=== PATIENT | male | born 1965 | race Caucasian/White ===

== ENCOUNTER 2024-03-09 12:04 | Inpatient (IN) | payer OTHER ==
[~2024-03-09] VITALS: Ht 167.6 cm; Wt 86.2 kg
[2024-03-09] MEDS ORDERED: THIA100T68 PO (12:19)
[2024-03-09] MEDS ORDERED: POTA-88 PO (12:19)
[2024-03-09] MEDS ORDERED: ZONI100C31 PO (12:19)
[2024-03-09] MEDS ORDERED: OMEG100019 PO (12:19)
[2024-03-09] MEDS ORDERED: MAGN400T52 PO (12:19)
[2024-03-09] MEDS ORDERED: POLY17PO4 PO (12:19)
[2024-03-09] MEDS ORDERED: CYAN100T44 PO (12:19)
[2024-03-09] MEDS ORDERED: LEVE500T20 PO (12:19)
[2024-03-09] MEDS ORDERED: SENN1TAB59 PO (12:19)
[2024-03-09] MEDS ORDERED: CHOL10005 PO (12:19)
[2024-03-09] MEDS ORDERED: PYRI-6 PO (12:19)
[2024-03-09] MEDS ORDERED: MULT-594 PO (12:19)
[2024-03-09 12:34] LABS: EOSINOPHILS # (AUTO) 0.2 K/uL (0.0-0.7)
[2024-03-09 12:45] LABS: CALCIUM 9.5 mg/dL (8.5-10.1); CARBON DIOXIDE 25 mmol/L (21-32); CHLORIDE 112 mmol/L (98-107); CREATININE 0.9 mg/dL (0.6-1.3); GLUCOSE 97 mg/dL (74-106); POTASSIUM 3.2 mmol/L (3.5-5.1); SODIUM SERUM 146 mmol/L (136-145); UREA NITROGEN, BLOOD 20 mg/dL (7-18)
[2024-03-09 12:53] LABS: ALANINE AMINOTRANSFERASE 24 U/L (16-63); ALBUMIN 3.3 g/dL (3.4-5.0); ALKALINE PHOSPHATASE 94 U/L (50-136); ASPARTATE AMINOTRANSFERASE 10 U/L (15-37); BILIRUBIN,DIRECT 0.1 mg/dL (0.0-0.2); BILIRUBIN,TOTAL 0.5 mg/dL (0.2-1.0); LIPASE 97 U/L (16-77); TOTAL PROTEIN, SERUM 8.2 g/dL (6.4-8.2)
[2024-03-09 13:38] LABS: BASOPHILS % (AUTO) 0.6 % (0.0-2.0); EOSINOPHILS % (AUTO) 2.2 % (0.0-7.0); HEMATOCRIT 40.9 % (36.7-47.1); HEMOGLOBIN 13.1 g/dL (12.5-16.3); LYMPHOCYTES # (AUTO) 1.4 K/uL (0.8-4.8); LYMPHOCYTES % (AUTO) 20.6 % (20.5-51.5); MEAN CORPUSCULAR HEMOGLOBIN 30.3 uug (23.8-33.4); MEAN CORPUSCULAR HGB CONC 32 g/dL (32.5-36.3); MEAN CORPUSCULAR VOLUME 94.5 fL (73.0-96.2); MONOCYTES # (AUTO) 0.7 K/uL (0.1-1.30); MONOCYTES % (AUTO) 10.4 % (0.0-11.0); NEUTROPHILS # (AUTO) 4.6 K/uL (1.8-8.9); NEUTROPHILS % (AUTO) 66.2 % (38.5-71.5); PLATELET COUNT (AUTO) 240 K/uL (152-348); RED BLOOD CELL COUNT(AUTO) 4.33 MIL/uL (4.06-5.63); RED CELL DISTRIBUTION WIDTH 14.1 % (12.1-16.2)
[2024-03-09 13:40] LABS: DIFFERENTIAL COMMENT 1
[2024-03-09 13:58] LABS: *BILIRUBIN,URIN NEGATIVE (NEGATIVE); *BLOOD, URINE NEGATIVE (NEGATIVE); *CLARITY,URINE CLEAR (CLEAR); *COLOR,URINE YELLOW (YELLOW); *KETONES,URINE NEGATIVE (NEGATIVE); *PROTEIN,URINE NEGATIVE (NEGATIVE); *UROBILINOGEN,URINE 0.2 E.U./dl (NORMAL); LEUKOCYTE ESTERASE ,URINE NEGATIVE (NEGATIVE); NITRITE, URINE NEGATIVE (NEGATIVE); PH,URINE 6.5 (5.0-8.0); UGLUCOSE NEGATIVE (NEGATIVE)
[2024-03-09 14:08] LABS: *OCCULT BLOOD STOOL NEGATIVE (NEGATIVE)
[2024-03-09] MEDS ORDERED: ONDANSETRON 4 MG/2 ML VIAL IV PRN (16:00)
[2024-03-09] MEDS ORDERED: ACETAMINOPHEN 650 MG SUPP.RECT RC PRN (16:00)
[2024-03-09] MEDS ORDERED: ACETAMINOPHEN 325 MG TABLET PO PRN (16:00)
[2024-03-09] MEDS ORDERED: LORAZEPAM 2 MG/1 ML VIAL IV PRN (16:15)
[2024-03-09] MEDS: IV D5W 1000ML 1,000 ML IV PRN (19:51)
[2024-03-09 19:55] VITALS: BP 153/86; TEMP 98.9; O2SAT 97
[2024-03-09] MEDS: POTASSIUM CHLORIDE 50 ML IV SCH (20:01)
[2024-03-09] MEDS: ZONISAMIDE 100 MG CAPSULE PO SCH (20:25)
[2024-03-09] MEDS: levETIRAcetam 500 MG TABLET PO SCH (20:25)
[2024-03-09] MEDS: ENOXAPARIN SODIUM 40 MG/0.4 ML DISP.SYRIN SQ SCH (20:26)
[2024-03-09] MEDS ORDERED: levETIRAcetam 500 MG TABLET PO SCH (21:00)
[2024-03-10 04:06] VITALS: BP 110/78; TEMP 98.8; O2SAT 97
[2024-03-10 06:41] LABS: BASOPHILS % (AUTO) 0.5 % (0.0-2.0); EOSINOPHILS # (AUTO) 0.2 K/uL (0.0-0.7); EOSINOPHILS % (AUTO) 3.5 % (0.0-7.0); LYMPHOCYTES # (AUTO) 1.3 K/uL (0.8-4.8); LYMPHOCYTES % (AUTO) 19.9 % (20.5-51.5); MEAN CORPUSCULAR HEMOGLOBIN 30.6 uug (23.8-33.4); MEAN CORPUSCULAR HGB CONC 33 g/dL (32.5-36.3); MEAN CORPUSCULAR VOLUME 94.1 fL (73.0-96.2); MONOCYTES # (AUTO) 0.6 K/uL (0.1-1.30); MONOCYTES % (AUTO) 8.7 % (0.0-11.0); NEUTROPHILS # (AUTO) 4.5 K/uL (1.8-8.9); NEUTROPHILS % (AUTO) 67.4 % (38.5-71.5); PLATELET COUNT (AUTO) 223 K/uL (152-348); RED BLOOD CELL COUNT(AUTO) 4.25 MIL/uL (4.06-5.63); RED CELL DISTRIBUTION WIDTH 13.8 % (12.1-16.2); WHITE BLOOD COUNT (AUTO) 6.7 K/uL (3.6-10.2)
[2024-03-10 06:51] LABS: DIFFERENTIAL COMMENT 1
[2024-03-10 07:27] LABS: ALANINE AMINOTRANSFERASE 18 U/L (16-63); ALBUMIN 2.9 g/dL (3.4-5.0); ALKALINE PHOSPHATASE 84 U/L (50-136); ASPARTATE AMINOTRANSFERASE < 5 U/L (15-37); BILIRUBIN,TOTAL 0.5 mg/dL (0.2-1.0); CALCIUM 8.6 mg/dL (8.5-10.1); CARBON DIOXIDE 25 mmol/L (21-32); CHLORIDE 112 mmol/L (98-107); CREATININE 0.8 mg/dL (0.6-1.3); GLUCOSE 92 mg/dL (74-106); MAGNESIUM 2.1 mg/dL (1.8-2.4); PHOSPHOROUS 2.7 mg/dL (2.5-4.9); SODIUM SERUM 147 mmol/L (136-145); TOTAL PROTEIN, SERUM 7.2 g/dL (6.4-8.2); UREA NITROGEN, BLOOD 15 mg/dL (7-18)
[2024-03-10] MEDS: PANTOPRAZOLE SODIUM 40 MG VIAL IV SCH (09:09)
[2024-03-10 12:31] VITALS: BP 136/71; TEMP 98.8; O2SAT 90
[2024-03-10] MEDS: POTASSIUM CHLORIDE 20 MEQ TAB.PRT.SR PO SCH (13:55)
[2024-03-10 16:47] VITALS: BP 109/76; TEMP 98.1; O2SAT 93
[2024-03-10] MEDS ORDERED: ALBUTEROL SULFATE 2.5 MG/ 0.5 ML NEBU NEB PRN (18:15)
[2024-03-10 20:38] VITALS: BP 141/72; TEMP 98.4; O2SAT 95
[2024-03-11 04:50] VITALS: BP 116/64; TEMP 97.8; O2SAT 96
[2024-03-11 07:27] LABS: BASOPHILS % (AUTO) 0.5 % (0.0-2.0); EOSINOPHILS # (AUTO) 0.2 K/uL (0.0-0.7); EOSINOPHILS % (AUTO) 3.2 % (0.0-7.0); HEMATOCRIT 40.2 % (36.7-47.1); HEMOGLOBIN 13.3 g/dL (12.5-16.3); LYMPHOCYTES # (AUTO) 1.1 K/uL (0.8-4.8); LYMPHOCYTES % (AUTO) 16.9 % (20.5-51.5); MEAN CORPUSCULAR HEMOGLOBIN 30.8 uug (23.8-33.4); MEAN CORPUSCULAR HGB CONC 33 g/dL (32.5-36.3); MEAN CORPUSCULAR VOLUME 93.2 fL (73.0-96.2); MONOCYTES # (AUTO) 0.6 K/uL (0.1-1.30); MONOCYTES % (AUTO) 8.7 % (0.0-11.0); NEUTROPHILS # (AUTO) 4.8 K/uL (1.8-8.9); NEUTROPHILS % (AUTO) 70.7 % (38.5-71.5); PLATELET COUNT (AUTO) 223 K/uL (152-348); RED BLOOD CELL COUNT(AUTO) 4.32 MIL/uL (4.06-5.63); RED CELL DISTRIBUTION WIDTH 13.5 % (12.1-16.2); WHITE BLOOD COUNT (AUTO) 6.8 K/uL (3.6-10.2)
[2024-03-11 07:40] LABS: DIFFERENTIAL COMMENT 1
[2024-03-11 08:00] LABS: ALBUMIN 2.8 g/dL (3.4-5.0); BILIRUBIN,DIRECT 0.2 mg/dL (0.0-0.2); BILIRUBIN,TOTAL 0.7 mg/dL (0.2-1.0); CALCIUM 8.2 mg/dL (8.5-10.1); CREATININE 0.7 mg/dL (0.6-1.3); MAGNESIUM 1.9 mg/dL (1.8-2.4); PHOSPHOROUS 2.2 mg/dL (2.5-4.9); TOTAL PROTEIN, SERUM 7.2 g/dL (6.4-8.2)
[2024-03-11 08:12] LABS: THYROID STIMULATING HORMONE 1.188 mIU/mL (0.358-3.740)
[2024-03-11 10:21] LABS: POTASSIUM 2.5 mmol/L (3.5-5.1)
[2024-03-11] MEDS: POTASSIUM CHLORIDE 50 ML IV SCH ×2 (11:52→22:34)
[2024-03-11 12:00] VITALS: BP 124/69; TEMP 97; O2SAT 100
[2024-03-11] MEDS ORDERED: DIATR MEGLU/DIATRIZOATE SODIUM 30 ML BOTTLE ONE (12:16)
[2024-03-11 16:00] VITALS: BP 153/76; TEMP 97; O2SAT 97
[2024-03-11] MEDS: NEUTRA PHOS PACKET PO ONE (16:37)
[2024-03-11] MEDS: IV D5 1/2 NS 1000 ML 1,000 ML IV PRN (18:10)
[2024-03-11 20:08] VITALS: BP 119/68; TEMP 98.7; O2SAT 96
[2024-03-11 20:24] LABS: CALCIUM 8.4 mg/dL (8.5-10.1); CREATININE 0.7 mg/dL (0.6-1.3); MAGNESIUM 2.1 mg/dL (1.8-2.4)
[2024-03-11 20:43] LABS: POTASSIUM 2.6 mmol/L (3.5-5.1)
[2024-03-11] MEDS: ATORVASTATIN 10 MG TABLET PO SCH (21:04)
[2024-03-12 08:00] VITALS: BP 109/43; TEMP 97; O2SAT 97
[2024-03-12 10:09] LABS: BASOPHILS % (AUTO) 0.4 % (0.0-2.0); EOSINOPHILS # (AUTO) 0.2 K/uL (0.0-0.7); EOSINOPHILS % (AUTO) 3.5 % (0.0-7.0); HEMATOCRIT 41.9 % (36.7-47.1); HEMOGLOBIN 13.9 g/dL (12.5-16.3); LYMPHOCYTES # (AUTO) 1.3 K/uL (0.8-4.8); MEAN CORPUSCULAR HEMOGLOBIN 30.9 uug (23.8-33.4); MEAN CORPUSCULAR HGB CONC 33 g/dL (32.5-36.3); MEAN CORPUSCULAR VOLUME 92.8 fL (73.0-96.2); MONOCYTES # (AUTO) 0.8 K/uL (0.1-1.30); MONOCYTES % (AUTO) 11.4 % (0.0-11.0); NEUTROPHILS # (AUTO) 4.5 K/uL (1.8-8.9); NEUTROPHILS % (AUTO) 65.7 % (38.5-71.5); PLATELET COUNT (AUTO) 236 K/uL (152-348); RED BLOOD CELL COUNT(AUTO) 4.51 MIL/uL (4.06-5.63); RED CELL DISTRIBUTION WIDTH 13.5 % (12.1-16.2); WHITE BLOOD COUNT (AUTO) 6.9 K/uL (3.6-10.2)
[2024-03-12 11:37] LABS: CALCIUM 8.6 mg/dL (8.5-10.1); CREATININE 0.8 mg/dL (0.6-1.3); MAGNESIUM 2.1 mg/dL (1.8-2.4); PHOSPHOROUS 1.9 mg/dL (2.5-4.9); POTASSIUM 3.4 mmol/L (3.5-5.1)
[2024-03-12 12:00] VITALS: BP 115/46; TEMP 98.8; O2SAT 97
[2024-03-12 15:50] VITALS: BP 133/79; TEMP 98.2; O2SAT 96
[2024-03-12] MEDS: NEUTRA PHOS PACKET PO ONE (16:02)
[2024-03-12 19:55] VITALS: BP 126/78; TEMP 97.9; O2SAT 96
[2024-03-13 04:00] VITALS: BP 128/82; TEMP 97.8; O2SAT 97
[2024-03-13 06:23] LABS: BASOPHILS % (AUTO) 0.7 % (0.0-2.0); EOSINOPHILS # (AUTO) 0.3 K/uL (0.0-0.7); EOSINOPHILS % (AUTO) 4.1 % (0.0-7.0); HEMATOCRIT 42.6 % (36.7-47.1); HEMOGLOBIN 14.1 g/dL (12.5-16.3); LYMPHOCYTES # (AUTO) 1.3 K/uL (0.8-4.8); MEAN CORPUSCULAR HEMOGLOBIN 31.3 uug (23.8-33.4); MEAN CORPUSCULAR HGB CONC 33 g/dL (32.5-36.3); MEAN CORPUSCULAR VOLUME 94.7 fL (73.0-96.2); MONOCYTES # (AUTO) 0.8 K/uL (0.1-1.30); MONOCYTES % (AUTO) 12.7 % (0.0-11.0); NEUTROPHILS # (AUTO) 3.8 K/uL (1.8-8.9); NEUTROPHILS % (AUTO) 61.5 % (38.5-71.5); PLATELET COUNT (AUTO) 212 K/uL (152-348); WHITE BLOOD COUNT (AUTO) 6.2 K/uL (3.6-10.2)
[2024-03-13 06:38] LABS: CALCIUM 8.6 mg/dL (8.5-10.1); CREATININE 0.7 mg/dL (0.6-1.3); MAGNESIUM 2.2 mg/dL (1.8-2.4); PHOSPHOROUS 2.2 mg/dL (2.5-4.9); POTASSIUM 3.1 mmol/L (3.5-5.1)
[2024-03-13 06:43] LABS: DIFFERENTIAL COMMENT 1
[2024-03-13 08:00] VITALS: BP 108/41; TEMP 98.4; O2SAT 95
[2024-03-13] MEDS: POTASSIUM CHLORIDE 20 MEQ TAB.PRT.SR PO ONE (08:08)
[2024-03-13 11:57] VITALS: BP 112/60; TEMP 97.7; O2SAT 97
[2024-03-13 16:00] VITALS: BP 115/69; TEMP 97.5; O2SAT 97
[2024-03-13] MEDS: NEUTRA PHOS PACKET PO ONE (17:56)
[2024-03-13 20:00] VITALS: BP 114/81; TEMP 98.3; O2SAT 96
[2024-03-14] VITALS: BP 120/81; TEMP 98.5; O2SAT 96
[2024-03-14 09:49] LABS: HEMATOCRIT 41.1 % (36.7-47.1); HEMOGLOBIN 13.6 g/dL (12.5-16.3); RED BLOOD CELL COUNT(AUTO) 4.38 MIL/uL (4.06-5.63); WHITE BLOOD COUNT (AUTO) 6.7 K/uL (3.6-10.2)
[2024-03-14 09:50] LABS: BASOPHILS % (AUTO) 0.5 % (0.0-2.0); EOSINOPHILS # (AUTO) 0.3 K/uL (0.0-0.7); EOSINOPHILS % (AUTO) 3.9 % (0.0-7.0); LYMPHOCYTES # (AUTO) 1.3 K/uL (0.8-4.8); LYMPHOCYTES % (AUTO) 19.9 % (20.5-51.5); MEAN CORPUSCULAR HEMOGLOBIN 31.1 uug (23.8-33.4); MEAN CORPUSCULAR HGB CONC 33 g/dL (32.5-36.3); MEAN CORPUSCULAR VOLUME 93.7 fL (73.0-96.2); MONOCYTES # (AUTO) 0.7 K/uL (0.1-1.30); MONOCYTES % (AUTO) 10.4 % (0.0-11.0); NEUTROPHILS # (AUTO) 4.3 K/uL (1.8-8.9); NEUTROPHILS % (AUTO) 65.3 % (38.5-71.5); PLATELET COUNT (AUTO) 244 K/uL (152-348); RED CELL DISTRIBUTION WIDTH 13.9 % (12.1-16.2)
[2024-03-14 11:58] VITALS: BP 114/62; TEMP 98.6; O2SAT 98
[2024-03-14 14:04] LABS: POTASSIUM 2.9 mmol/L (3.5-5.1)
[2024-03-14 14:05] LABS: CALCIUM 8.8 mg/dL (8.5-10.1); CREATININE 0.7 mg/dL (0.6-1.3); MAGNESIUM 2.1 mg/dL (1.8-2.4); PHOSPHOROUS 2.5 mg/dL (2.5-4.9)
[2024-03-14 15:16] VITALS: BP 133/76; TEMP 97.4; O2SAT 96
[2024-03-14] MEDS: POTASSIUM CHLORIDE 20 MEQ POWDER PACKET PO ONE ×2 (15:52→20:17)
[2024-03-14 20:24] VITALS: O2SAT 96
[2024-03-14] MEDS ORDERED: ZONISAMIDE 100 MG CAPSULE ONE (20:57)
[2024-03-14 21:30] VITALS: BP 124/71; TEMP 98.9; O2SAT 95
[2024-03-15 06:00] VITALS: BP 132/88; TEMP 98.5; O2SAT 98
[2024-03-15 07:49] LABS: CALCIUM 8.8 mg/dL (8.5-10.1); CREATININE 0.7 mg/dL (0.6-1.3); MAGNESIUM 2.1 mg/dL (1.8-2.4); PHOSPHOROUS 2.1 mg/dL (2.5-4.9); POTASSIUM 3.4 mmol/L (3.5-5.1)
[2024-03-15 07:55] LABS: BASOPHILS % (AUTO) 0.5 % (0.0-2.0); EOSINOPHILS # (AUTO) 0.2 K/uL (0.0-0.7); EOSINOPHILS % (AUTO) 3.9 % (0.0-7.0); HEMATOCRIT 41.8 % (36.7-47.1); HEMOGLOBIN 13.8 g/dL (12.5-16.3); LYMPHOCYTES # (AUTO) 1.2 K/uL (0.8-4.8); LYMPHOCYTES % (AUTO) 20.2 % (20.5-51.5); MEAN CORPUSCULAR HEMOGLOBIN 30.9 uug (23.8-33.4); MEAN CORPUSCULAR HGB CONC 33 g/dL (32.5-36.3); MEAN CORPUSCULAR VOLUME 93.7 fL (73.0-96.2); MONOCYTES # (AUTO) 0.7 K/uL (0.1-1.30); MONOCYTES % (AUTO) 12.2 % (0.0-11.0); NEUTROPHILS # (AUTO) 3.7 K/uL (1.8-8.9); NEUTROPHILS % (AUTO) 63.2 % (38.5-71.5); PLATELET COUNT (AUTO) 235 K/uL (152-348); RED BLOOD CELL COUNT(AUTO) 4.47 MIL/uL (4.06-5.63); RED CELL DISTRIBUTION WIDTH 13.8 % (12.1-16.2); WHITE BLOOD COUNT (AUTO) 5.8 K/uL (3.6-10.2)
[2024-03-15 07:58] LABS: DIFFERENTIAL COMMENT 1
[2024-03-15] MEDS: POTASSIUM CHLORIDE 20 MEQ POWDER PACKET GT ONE (11:16)
[2024-03-15 13:18] VITALS: BP 94/57; TEMP 98.3; O2SAT 94
[2024-03-15] MEDS: NEUTRA PHOS PACKET PO ONE (13:39)
[2024-03-15 15:48] VITALS: BP 100/67; TEMP 98.4; O2SAT 93
[2024-03-15 20:00] VITALS: BP 123/85; TEMP 98.5; O2SAT 94
[2024-03-15 20:35] VITALS: O2SAT 94
[2024-03-16 05:36] VITALS: BP 124/83; TEMP 99.6; O2SAT 97
[2024-03-16] MEDS: PANTOPRAZOLE SODIUM 40 MG TABLET.DR PO SCH (06:11)
[2024-03-16 06:58] LABS: BASOPHILS % (AUTO) 0.6 % (0.0-2.0); EOSINOPHILS # (AUTO) 0.3 K/uL (0.0-0.7); EOSINOPHILS % (AUTO) 4.2 % (0.0-7.0); HEMOGLOBIN 13.6 g/dL (12.5-16.3); LYMPHOCYTES # (AUTO) 1.3 K/uL (0.8-4.8); LYMPHOCYTES % (AUTO) 21.4 % (20.5-51.5); MEAN CORPUSCULAR HEMOGLOBIN 31.2 uug (23.8-33.4); MEAN CORPUSCULAR HGB CONC 33 g/dL (32.5-36.3); MEAN CORPUSCULAR VOLUME 94.2 fL (73.0-96.2); MONOCYTES # (AUTO) 0.7 K/uL (0.1-1.30); NEUTROPHILS # (AUTO) 3.8 K/uL (1.8-8.9); NEUTROPHILS % (AUTO) 61.8 % (38.5-71.5); PLATELET COUNT (AUTO) 243 K/uL (152-348); RED BLOOD CELL COUNT(AUTO) 4.35 MIL/uL (4.06-5.63); RED CELL DISTRIBUTION WIDTH 13.9 % (12.1-16.2); WHITE BLOOD COUNT (AUTO) 6.2 K/uL (3.6-10.2)
[2024-03-16 07:11] LABS: DIFFERENTIAL COMMENT 1
[2024-03-16 07:14] LABS: CALCIUM 8.9 mg/dL (8.5-10.1); CREATININE 0.7 mg/dL (0.6-1.3); MAGNESIUM 2.1 mg/dL (1.8-2.4); PHOSPHOROUS 2.7 mg/dL (2.5-4.9); POTASSIUM 3.5 mmol/L (3.5-5.1)
[2024-03-16 10:56] VITALS: BP 121/87; TEMP 98.7; O2SAT 96
[2024-03-16 15:02] VITALS: BP 116/80; TEMP 98.4; O2SAT 96
[2024-03-16 20:07] VITALS: BP 104/58; TEMP 98.2; O2SAT 97
[2024-03-16] MEDS: REMEDY ESSENTIAL ZINC PASTE 113 GM TP PRN (21:02)
[2024-03-17 04:00] VITALS: BP 111/73; TEMP 98; O2SAT 96
[2024-03-17 11:55] VITALS: BP 127/69; TEMP 98.2; O2SAT 95
[2024-03-17 16:06] VITALS: BP 129/70; TEMP 98.1; O2SAT 98
[2024-03-18 12:00] VITALS: TEMP 98
[2024-03-18 15:53] VITALS: BP 139/76; TEMP 95.5
[2024-03-18 20:13] VITALS: BP 162/79; TEMP 98.3; O2SAT 96
[2024-03-18 20:40] VITALS: BP 128/83; TEMP 98; O2SAT 96
[2024-03-19 06:03] VITALS: BP 128/71; TEMP 98.1; O2SAT 96
[2024-03-19 06:41] LABS: BASOPHILS % (AUTO) 0.4 % (0.0-2.0); EOSINOPHILS # (AUTO) 0.2 K/uL (0.0-0.7); EOSINOPHILS % (AUTO) 2.9 % (0.0-7.0); HEMOGLOBIN 14.2 g/dL (12.5-16.3); LYMPHOCYTES # (AUTO) 1.2 K/uL (0.8-4.8); LYMPHOCYTES % (AUTO) 16.7 % (20.5-51.5); MEAN CORPUSCULAR HEMOGLOBIN 30.9 uug (23.8-33.4); MEAN CORPUSCULAR HGB CONC 33 g/dL (32.5-36.3); MEAN CORPUSCULAR VOLUME 93.7 fL (73.0-96.2); MONOCYTES # (AUTO) 0.8 K/uL (0.1-1.30); MONOCYTES % (AUTO) 11.5 % (0.0-11.0); NEUTROPHILS # (AUTO) 4.8 K/uL (1.8-8.9); NEUTROPHILS % (AUTO) 68.5 % (38.5-71.5); PLATELET COUNT (AUTO) 252 K/uL (152-348); RED CELL DISTRIBUTION WIDTH 13.8 % (12.1-16.2); WHITE BLOOD COUNT (AUTO) 7.1 K/uL (3.6-10.2)
[2024-03-19 06:51] LABS: DIFFERENTIAL COMMENT 1
[2024-03-19 07:01] LABS: CALCIUM 9.2 mg/dL (8.5-10.1); CREATININE 0.7 mg/dL (0.6-1.3); MAGNESIUM 1.9 mg/dL (1.8-2.4); PHOSPHOROUS 3.5 mg/dL (2.5-4.9); POTASSIUM 3.1 mmol/L (3.5-5.1)
[2024-03-19] MEDS ORDERED: ATOR10TA PO (11:05)
[2024-03-19 11:58] VITALS: BP 121/74; TEMP 98.6; O2SAT 94
[2024-03-19] MEDS: POTASSIUM CHLORIDE 20 MEQ TAB.PRT.SR PO SCH (12:17)
[2024-03-19 16:24] VITALS: BP 108/81; TEMP 97.9; O2SAT 94
== END 2024-03-19 16:45 | DRG 254 ==
LOC: ER 12:04 → TELE3 18:25 → MEDSURG3 18:55
PROVIDERS: ADMIT Nurse Practitioner Family; ATTEND Nurse Practitioner Family
PROC: 0D9P70Z Drainage of Rectum with Drainage Device, Via Natural or Artificial Opening (ICD-10-PCS; principal; 2024-03-13)
DX: K63.89 Other specified diseases of intestine (principal); E87.0 Hyperosmolality and hypernatremia; E44.1 Mild protein-calorie malnutrition; E83.39 Other disorders of phosphorus metabolism; E88.09 Other disorders of plasma-protein metabolism, not elsewhere classified; E86.0 Dehydration; F80.9 Developmental disorder of speech and language, unspecified; R27.0 Ataxia, unspecified; N20.0 Calculus of kidney; Z91.81 History of falling; N28.9 Disorder of kidney and ureter, unspecified; E87.6 Hypokalemia; G40.909 Epilepsy, unspecified, not intractable, without status epilepticus; D64.9 Anemia, unspecified; R79.89 Other specified abnormal findings of blood chemistry; J98.11 Atelectasis; R11.2 Nausea with vomiting, unspecified; M51.36 Other intervertebral disc degeneration, lumbar region; M41.9 Scoliosis, unspecified
CPT/HCPCS: 36415; 71045; 74018; 74270; 83690; 83735; 84100; 84443; 84484; 85025; 85730; 87177; 89055; 93005; A4606; A4663; A6213; G0378; J1650; J2470; J3480; J7040; J7070; J8499; Q9963